=== PATIENT | female | born 1935 | race Caucasian/White ===

== ENCOUNTER 2016-09-20 07:46 | Inpatient (IN) | payer MEDICARE ==
[~2016-09-20] VITALS: Ht 157.5 cm; Wt 72.6 kg
[2016-09-20 12:00] VITALS: BP 140/62; PULSE 62; RESP 19; TEMP 97.6; O2SAT 96
[2016-09-20] MEDS ORDERED: LOSA1TAB3 PO (13:26)
[2016-09-20] MEDS ORDERED: ASPI-859 PO (13:26)
[2016-09-20] MEDS ORDERED: LEVO75TA7 PO (13:26)
[2016-09-20] MEDS ORDERED: CHOL100035 PO (13:26)
[2016-09-20] MEDS ORDERED: SIMV40TA5 PO (13:26)
[2016-09-20] MEDS ORDERED: LEVO50TA77 PO (13:26)
[2016-09-20] MEDS ORDERED: PRO40 PO (13:26)
[2016-09-20] MEDS ORDERED: METO25TA6 PO (13:26)
[2016-09-20] MEDS ORDERED: PROMETHAZINE-DM 6.25 MG-15 MG/5 ML UDC PO PRN (14:00)
[2016-09-20] MEDS ORDERED: LOSARTAN/HYDROCHLOROTHIAZIDE TAB (HYZAAR 50-12.5 MG) PO SCH (16:30)
[2016-09-20] MEDS: LEVOTHYROXINE SODIUM 0.05 MG TABLET PO SCH (16:30)
[2016-09-20] MEDS ORDERED: VITD2000 PO (16:41)
[2016-09-20] MEDS ORDERED: PANTOPRAZOLE SODIUM 40 MG TAB PO ONE (17:00)
[2016-09-20] MEDS ORDERED: CHOLECALCIFEROL (VITAMIN D3) 2,000 UNIT TABLET PO ONE (17:00)
[2016-09-20 19:43] VITALS: BP 137/53; PULSE 72; RESP 16; TEMP 98.8; O2SAT 97
[2016-09-20 19:44] VITALS: BP 137/53; PULSE 72; RESP 16; TEMP 98.8; O2SAT 97
[2016-09-20] MEDS: METOPROLOL TARTRATE 25 MG TABLET PO SCH (20:42)
[2016-09-20] MEDS ORDERED: SIMVASTATIN 40 MG TABLET PO SCH (21:00)
[2016-09-21] VITALS: BP 127/66; PULSE 65; RESP 18; TEMP 97.1; O2SAT 95
[2016-09-21] MEDS: LEVOTHYROXINE SODIUM 0.05 MG TABLET PO SCH (05:58)
[2016-09-21 06:07] VITALS: BP 129/68; PULSE 60; RESP 17; TEMP 98; O2SAT 96
[2016-09-21 07:09] LABS: BASOPHILS % (AUTO) 0.4 % (0.0-2.0); EOSINOPHILS # (AUTO) 0.1 K/uL (0.0-0.4); EOSINOPHILS % (AUTO) 1.5 % (0.0-4.0); HEMATOCRIT 34.3 % (36-48); HEMOGLOBIN 11.7 g/dL (12.0-16.0); LYMPHOCYTES # (AUTO) 1.6 K/uL (1.0-5.5); LYMPHOCYTES % (AUTO) 25.9 % (20.5-51.5); MEAN CORPUSCULAR HEMOGLOBIN 30 pg (27-31); MEAN CORPUSCULAR HGB CONC 34 % (32-36); MEAN CORPUSCULAR VOLUME 89 fL (79.0-98.0); MONOCYTES # (AUTO) 0.6 K/uL (0.0-1.0); MONOCYTES % (AUTO) 8.8 % (1.7-9.3); NEUTROPHILS % (AUTO) 63.4 % (40.0-70.0); RED BLOOD CELL COUNT(AUTO) 3.85 MIL/uL (4.2-6.2); RED CELL DISTRIBUTION WIDTH 13.2 % (9.0-15.0); WHITE BLOOD COUNT (AUTO) 6.3 K/uL (4.8-10.8)
[2016-09-21 07:28] LABS: PLATELET COUNT (AUTO) 156 K/uL (130-430)
[2016-09-21 07:54] LABS: ANION GAP 9 (5-15); CALCIUM 8.8 mg/dL (8.4-11.0); CHLORIDE 102 mmol/L (98-107); CREATININE 1.04 mg/dL (0.55-1.30); GLUCOSE 97 mg/dL (70-99); POTASSIUM 3.1 mmol/L (3.5-5.1); SODIUM SERUM 141 mmol/L (136-145); UREA NITROGEN, BLOOD 14 mg/dL (8-21)
[2016-09-21 08:00] VITALS: BP 142/66; PULSE 71; RESP 18; TEMP 97.6; O2SAT 94
[2016-09-21 08:09] LABS: ALANINE AMINOTRANSFERASE 30 U/L (12-78); ALBUMIN 3.5 g/dL (3.4-4.8); ASPARTATE AMINOTRANSFERASE 20 U/L (10-37); FREE T4 (FREE THYROXINE) 1.1 ng/dl (0.8-1.5); TOTAL BILIRUBIN 1.4 mg/dL (0.0-1.0)
[2016-09-21] MEDS: METOPROLOL TARTRATE 25 MG TABLET PO SCH (08:51)
[2016-09-21] MEDS ORDERED: POTASSIUM CHLORIDE 20 MEQ TAB.PRT.SR PO ONE (09:00)
[2016-09-21] MEDS ORDERED: PANTOPRAZOLE SODIUM 40 MG TAB PO SCH (09:00)
[2016-09-21] MEDS ORDERED: LOSARTAN POTASSIUM 50 MG TABLET (COZAAR) PO SCH (09:00)
[2016-09-21] MEDS ORDERED: ASPIRIN 81 MG TABLET(ECOTRIN) PO SCH (09:00)
[2016-09-21] MEDS ORDERED: CHOLECALCIFEROL (VITAMIN D3) 2,000 UNIT TABLET PO SCH (09:00)
[2016-09-21] MEDS ORDERED: HYDROCHLOROTHIAZIDE 12.5 MG CAPSULE (HCTZ) PO SCH (09:00)
[2016-09-21] MEDS: POTASSIUM CHLORIDE 20 MEQ TAB.PRT.SR PO ONE ×2 (10:26→11:59)
[2016-09-21 11:04] LABS: BILIRUBIN,URINE NEGATIVE (NEGATIVE); CLARITY/URINE CLEAR (CLEAR); COLOR,URINE YELLOW (YELLOW); GLUCOSE,URINE NEGATIVE (NEGATIVE); KETONES,URINE NEGATIVE (NEGATIVE); LEUKOCYTE ESTERASE ,URINE 3+ (NEGATIVE); NITRITE, URINE NEGATIVE (NEGATIVE); PH,URINE 7.5 (5.0-8.0); PROTEIN URINE NEGATIVE (NEGATIVE); UROBILINOGEN,URINE 0.2 (0.2-1.0)
[2016-09-21 11:11] LABS: BLOOD, URINE TRACE (NEGATIVE)
[2016-09-21 11:16] LABS: BACTERIA,URINE MODERATE /HPF (None Seen); MUCUS,URINE None Seen /LPF (None Seen); RBC,URINE 0-3 /HPF (0-3)
[2016-09-21 12:00] VITALS: BP 134/69; PULSE 76; RESP 16; TEMP 97.8; O2SAT 99
[2016-09-21] MEDS ORDERED: CIPROFLOXACIN HCL 500 MG TABLET PO ONE (12:00)
[2016-09-21] MEDS ORDERED: cefTRIAXone 1 GM in D5W 50 ML IV SCH (12:00)
[2016-09-21 16:00] VITALS: BP 132/67; PULSE 89; RESP 16; TEMP 98.4; O2SAT 97
[2016-09-21 16:49] LABS: ANION GAP 7 (5-15); CALCIUM 9.3 mg/dL (8.4-11.0); CHLORIDE 104 mmol/L (98-107); GLUCOSE 130 mg/dL (70-99); SODIUM SERUM 140 mmol/L (136-145); UREA NITROGEN, BLOOD 14 mg/dL (8-21)
== END 2016-09-21 18:25 | disposition home or self-care (01) | DRG 313 ==
LOC: STU 11:00
PROVIDERS: ADMIT Internal Medicine; ATTEND Internal Medicine
DX: R07.89 Other chest pain (principal); N39.0 Urinary tract infection, site not specified; E03.9 Hypothyroidism, unspecified; E66.9 Obesity, unspecified; E78.5 Hyperlipidemia, unspecified; I10 Essential (primary) hypertension; Z68.29 Body mass index [BMI] 29.0-29.9, adult
CPT/HCPCS: 36415; 80048; 80053; 81000-TC; 83735-TC; 84439; 84443-TC; 84484; 85025; 86710; 87086; 93005; J0696; J7060